=== PATIENT | male | born 2005 | race Two or more races ===

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

== ENCOUNTER 2024-01-18 17:14 | Emergency (ER) | payer OTHER ==
[~2024-01-18] VITALS: Ht 177.8 cm; Wt 63.5 kg
[2024-01-18 19:31] LABS: HEMATOCRIT 40.9 % (39.0-48.0); HEMOGLOBIN 14.2 g/dL (13-16.00); MEAN CELL VOLUME 85.1 fL (80.0-100.00); MEAN CORPUSCULAR HEMOGLOBIN 29.6 pg (27.00-32.0); MEAN CORPUSCULAR HGB CONC 34.8 g/dl (32.0-36.0); PLATELET COUNT 175 K/uL (150-450); RED CELL DISTRIBUTION WIDTH 12.2 % (11.5-14.5)
== END 2024-01-18 20:36 | disposition home or self-care (01) ==
LOC: ER 17:16 → EMR PED 17:38 → ER 17:38 → EMR PED 20:36
PROVIDERS: Emergency Medicine Pediatric Emergency Medicine
DX: J09.X2 Influenza due to identified novel influenza A virus with other respiratory manifestations (principal)